=== PATIENT | male | born 1960 | race Caucasian/White ===

== ENCOUNTER 2018-03-03 08:01 | Day surgery (SDC) | payer OTHER ==
[~2018-03-03 08:01] MED LIST: ACETAMINOPHEN 1,000 MG/100 ML BTL IV ONE; CEFAZOLIN 2 Gram 2 GM/50 ML BAG IVPB ONE; FAMOTIDINE 20MG TABLET PO ONE; MECLIZINE 25 MG TABLET PO ONE; METOCLOPRAMIDE 10 MG TABLET PO ONE
[2018-03-03] MEDS ORDERED: SEVOFLURANE 250 ML INH ONE (08:02)
[2018-03-03] MEDS ORDERED: PROPOFOL 10 MG/ML VIAL IV ONE (08:02)
[2018-03-03] MEDS ORDERED: ENOXAPARIN 40 MG/0.4 ML SYR SQ ONE (08:02)
[2018-03-03] MEDS ORDERED: METHYLPREDNISOLONE 40MG/VIAL IM ONE (08:02)
[2018-03-03] MEDS ORDERED: MORPHINE SULFATE 4MG/ML PREFILLED SYRINGE IVP ONE (08:02)
[2018-03-03] MEDS ORDERED: LIDOCAINE 2% MDV (20MG/ML) 20ML VIAL IV ONE (08:02)
[2018-03-03] MEDS ORDERED: BUPIVACAINE 0.5% W/EPI MPF 30 ML VIAL IVP ONE (08:02)
--- NOTE | 2018-03-04 07:03 | Operative Note ---
DATE: 03/03/2018. PREOPERATIVE DIAGNOSIS: INTERNAL DERANGEMENT OF THE LEFT KNEE. POSTOPERATIVE DIAGNOSES: 1. GRADE 3 CHONDROMALACIA OF THE PATELLA. 2. COMPLEX SPLIT TEAR INVOLVING THE POSTERIOR HORN OF THE MEDIAL MENISCUS. 3. GRADE 3 CHONDROMALACIA OF THE MEDIAL FEMORAL CONDYLE. 5. SMALL FLAP TEAR INVOLVING THE ANTERIOR HORN OF THE LATERAL MENISCUS. PROCEDURES: 1. Left knee arthroscopy with partial medial and lateral meniscectomies. 2. Left knee arthroscopy with intra-articular debridement of the medial and patellofemoral compartments. STAFF SURGEON: Chris Yañez M.D. ANESTHESIA: General. PREPARATION: ChloraPrep. INDIVIDUAL CONSIDERATIONS: None. PROCEDURE: The patient was taken to the operating room and placed supine on the operating table. He had successful induction of a general anesthetic. His left lower extremity was prepped and draped in the usual fashion. The patient had a superolateral inflow cannula placed. The skin had been infiltrated with 0.5% Marcaine with epinephrine prior. A clear effusion was drained, and the knee was inflated with normal saline. An inferomedial and an inferolateral portal were made in a similar fashion. The arthroscope was introduced through the inferolateral portal up into the pouch. The patellofemoral joint showed some grade 3 changes at the medial facet of the patella. This was smoothed with a shaver. The notch had some striations and was otherwise intact. No loose bodies were seen in the pouch or either gutter. Medially he had a complex split tear involving the posterior horn of the medial meniscus. Most of this was debrided out with basket forceps and a shaver. There was grade 3 change centrally centered at 45 degrees about the size of a half dollar on the medial femoral condyle. This was smoothed with a shaver. The plateau medially had soft change but nothing to debride. In the notch, the cruciates were normal. Laterally a fringe tear involving the anterior horn of the lateral meniscus was debrided with a shaver. The remainder of the meniscus and articular cartilage was intact. The knee was then irrigated out with saline to remove loose, floating debris. The portals were closed with diana, and 20 mL of 0.25% plain Marcaine along with 5.0 mg of morphine and 40 mg of Depo Medrol were injected into the knee. A sterile bulky compressive dressing was applied. The patient tolerated the procedures well. Needle and sponge counts were correct. Estimated blood loss was minimal. He was taken back to Recovery in good condition. There were no complications. EDISON
== END 2018-03-03 10:50 | disposition home or self-care (01) ==
LOC: SUR 08:01
PROVIDERS: ATTEND Orthopaedic Surgery
DX: S83.232A Complex tear of medial meniscus, current injury, left knee, initial encounter (principal); S83.282A Other tear of lateral meniscus, current injury, left knee, initial encounter; M22.42 Chondromalacia patellae, left knee; M94.262 Chondromalacia, left knee; I10 Essential (primary) hypertension
CPT/HCPCS: 29880; 01400; 84132; J0690; J2274; J1030; J1650

== ENCOUNTER 2018-03-03 19:24 | Emergency (ER) | payer OTHER ==
--- NOTE | 2018-03-03 21:09 | Emergency Department Record ---
History of Present Illness - General Chief Complaint: Wound, check Stated Complaint: LT KNEE BLEED/HAD KNEE SURGERY TODAY Time Seen by Provider: 03/03/18 20:48 Source: Patient Mode of arrival: Ambulatory - History of Present Illness Initial Comments: pt had surgery today on his knee and then noticed blood soaking through the bandage. Onset/Timin -: Minutes(s) Initial Visit For: Other Returns Today for: Wound recheck Symptoms Since Prior Visit: No new symptoms - Related Data Home Medications Medication Instructions Recorded Confirmed Last Taken Hydrochlorothiazide [Hctz] 25 mg PO DAILY 03/03/18 03/03/18 1 Day Ago ~03/02/18 Hydrocodone/Acetaminophen [[place] 1 tab PO Q8H PRN 03/03/18 03/03/18 03/03/18 5mg/325mg] Allergies Allergy/AdvReac Type Severity Reaction Status Date / Time No Known Drug Allergies Allergy Verified 03/03/18 19:44 Travel Screening - Travel/Exposure Within Last 30 Days Have you traveled within the last 30 days?: No - Travel/Exposure Within Last Year Have you traveled outside the [place] in the last year?: No - Additonal Travel Details Have you been exposed to anyone with a communicable illness?: No - Travel Symptoms Symptom Screening: None Review of Systems Reviewed: No additional complaints except as noted below Constitutional: Reports: As per HPI. Denies: Chills, Fever, Malaise, Night sweats, Weakness, Weight change Eyes: Reports: As per HPI. Denies: Eye discharge, Eye pain, Photophobia, Vision change ENT: Reports: As per HPI. Denies: Congestion, Dental pain, Ear pain, Epistaxis , Hearing loss, Throat pain Respiratory: Reports: As per HPI. Denies: Cough, Dyspnea, Hemoptysis, Stridor, Wheezes Cardiovascular: Reports: As per HPI. Denies: Arrhythmia, Chest pain, Dyspnea on exertion, Edema, Murmurs, Orthopnea, Palpitations, Paroxysmal nocturnal dyspnea, Rheumatic Fever, Syncope Endocrine: Reports: As per HPI. Denies: Fatigue, Heat or cold intolerance, Polydipsia, Polyuria Gastrointestinal: Reports: As per HPI. Denies: Abdominal pain, Constipation, Diarrhea, Hematemesis, Hematochezia, Melena, Nausea, Vomiting Genitourinary: Reports: As per HPI. Denies: Dysuria, Frequency, Hematuria, Incontinence, Retention, Testicular pain, Testicular mass, Urgency Musculoskeletal: Reports: As per HPI. Denies: Arthralgia, Back pain, Gout, Joint swelling, Myalgia, Neck pain Skin: Reports: As per HPI. Denies: Bruising, Change in color, Change in hair/ nails, Lesions, Pruritus, Rash Neurological: Reports: As per HPI. Denies: Abnormal gait, Confusion, Headache, Numbness, Paresthesias, Seizure, Tingling, Tremors, Vertigo, Weakness Psychiatric: Reports: As per HPI. Denies: Anxiety, Auditory hallucinations, Depression, Homicidal thoughts, Suicidal thoughts, Visual hallucinations Hematological/Lymphatic: Reports: As per HPI. Denies: Anemia, Blood Clots, Easy bleeding, Easy bruising, Swollen glands Past Medical History - SOCIAL HISTORY Smoking Status: Never smoker Alcohol Use: Occasional Drug Use: None - RESPIRATORY Hx Respiratory Disorders: Yes Hx Bronchitis: Yes Hx Sleep Apnea: Yes Hx of CPAP: Yes - CARDIOVASCULAR Hx Cardio Disorders: Yes Hx Hypertension: Yes (on meds good control) - NEURO Hx Neuro Disorders: No - GI Hx GI Disorders: No - Hx Genitourinary Disorders: No - ENDOCRINE Hx Endocrine Disorders: No - MUSCULOSKELETAL Hx Musculoskeletal Disorders: Yes Comment:: left knee pain - PSYCH Hx Psych Problems: No - HEMATOLOGY/ONCOLOGY Hx Hematology/Oncology Disorders: No Family Medical History Any Significant Family History?: Yes Physical Exam - General General Appearance: Alert, Oriented x3, Cooperative, Mild distress - Head Head exam: Normal inspection - Eye Eye exam: Normal appearance, PERRL, EOMI Pupils: Normal accommodation - ENT ENT exam: Normal exam, Mucous membranes moist, Normal external ear exam, Normal orophraynx Ear exam: Normal external inspection. negative: External canal tenderness Nasal Exam: Normal inspection. negative: Discharge, Sinus tenderness Mouth exam: Normal external inspection, Tongue normal Teeth exam: Normal inspection. negative: Dental caries Throat exam: Normal inspection. negative: Tonsillar erythema, Tonsillar exudate - Neck Neck exam: Normal inspection, Full ROM. negative: Tenderness - Respiratory Respiratory exam: Normal lung sounds bilaterally. negative: Respiratory distress - Cardiovascular Cardiovascular Exam: Regular rate, Normal rhythm, Normal heart sounds - GI/Abdominal GI/Abdominal exam: Soft, Normal bowel sounds. negative: Tenderness - Rectal Rectal exam: Deferred - exam: Deferred - Extremities Extremities exam: Normal inspection, Full ROM, Normal capillary refill. negative: Tenderness - Back Back exam: Reports: Normal inspection, Full ROM. Denies: Muscle spasm, Rash noted, Tenderness - Neurological Neurological exam: Alert, CN II-XII intact, Normal gait, Oriented X3 - Psychiatric Psychiatric exam: Normal affect, Normal mood - Skin Skin exam: Dry, Intact, Normal color, Warm Course Vital Signs 03/03/18 03/03/18 19:33 21:00 Temperature 98.5 F 98.7 F Pulse Rate [ 64 57 L Pulse Ox Probe] Respiratory 20 16 Rate Blood Pressure 130/76 122/75 [Left Arm] Pulse Ox 94 L 94 L Disposition Disposition: Discharge Clinical Impression: Encounter for wound re-check Disposition: Home, Self-Care Condition: (1) Good Instructions: Acute Wound Care (ED) Additional Instructions: follow up with orthopedic doctor. return sooner if worse. Quality - Quality Measures Quality Measures: N/A - Blood Pressure Screening Does Patient Have Any of the Following: No Blood Pressure Classification: Pre-Hypertensive BP Reading Systolic Measurement: 122 Diastolic Measurement: 75 Screening for High Blood Pressure: < Pre-Hypertensive BP, F/U Documented > [ [id number]] Pre-Hypertensive Follow-up Interventions: Follow-up with rescreen every year.
== END 2018-03-03 21:15 | disposition home or self-care (01) ==
LOC: ER 19:24
DX: M96.830 Postprocedural hemorrhage of a musculoskeletal structure following a musculoskeletal system procedure (principal); Y83.8 Other surgical procedures as the cause of abnormal reaction of the patient, or of later complication, without mention of misadventure at the time of the procedure; I10 Essential (primary) hypertension
CPT/HCPCS: 99282